=== PATIENT | female | born 1990 | race Two or more races ===

== ENCOUNTER 2021-10-13 17:04 | Emergency (ER) | payer OTHER ==
[~2021-10-13] VITALS: Ht 160 cm; Wt 130.2 kg
== END 2021-10-13 22:59 | disposition home or self-care (01) ==
LOC: ER 17:04
DX: N93.8 Other specified abnormal uterine and vaginal bleeding (principal); R25.2 Cramp and spasm; N94.6 Dysmenorrhea, unspecified